=== PATIENT | male | born 1960 ===

== ENCOUNTER 2017-06-13 13:00 | Outpatient (CLI) | payer BC ==
[~2017-06-13] VITALS: Ht 182.9 cm; Wt 89.8 kg
[2017-06-13] MEDS ORDERED: ASPI-586 PO (13:15)
== END 2017-06-13 13:36 ==
LOC: PREOP 13:00
PROVIDERS: ATTEND Surgery
DX: Z01.818 Encounter for other preprocedural examination (principal); Z86.010 Personal history of colon polyps